=== PATIENT | female | born 1975 | race Caucasian/White ===

== ENCOUNTER 2024-03-03 05:31 | Inpatient (IN) | payer OTHER ==
[2024-03-03 06:59] LABS: VENOUS O2 SATURATION 83.5 % (70-80); VENOUS PCO2 44.6 mmHg (38-52); VENOUS PH 7.375 (7.310-7.410)
[2024-03-03] MEDS: LACTATED RINGERS SOLUTION 1000 ML INFUS.BAG IV ONE (07:20)
[2024-03-03 07:23] LABS: POTASSIUM 5.1 mmol/L (3.5-5.1)
[2024-03-03 07:24] LABS: BASO % 0.8 % (0-2.0); EOS % 0.6 % (0-4.5); HEMATOCRIT 40.1 % (32.4-45.2); HEMOGLOBIN 13.8 GM/dL (10.7-15.3); INR 0.99 (0.83-1.09); LYMPH % 30.5 % (8-40); MCH 31.7 pg (25.7-33.7); MCHC 34.4 g/dl (32.0-36.0); MEAN CELL VOLUME 92.4 fl (80-96); MEAN PLT VOLUME 8.9 fl (7.5-11.1); MONO % 14.9 % (3.8-10.2); NEUT % 53.2 % (42.8-82.8); PLATELET COUNT 180 10^3/uL (134-434); PROTHROMBIN TIME (PATIENT) 11.2 SEC (9.7-13.0); RBC 4.34 M/mm3 (3.60-5.2); RDW 13.6 % (11.6-15.6); WHITE BLOOD COUNT 8.2 K/mm3 (4.0-10.0)
[2024-03-03 07:26] LABS: ACTIVATED PTT 32.2 SECONDS (25.2-36.5); ALBUMIN 2.6 g/dl (3.4-5.0); BLOOD UREA NITROGEN 4.5 mg/dL (7-18); CALCIUM 8.9 mg/dL (8.5-10.1); MAGNESIUM 2.2 mg/dL (1.8-2.4)
[2024-03-03 07:29] LABS: CREATININE 0.7 mg/dL (0.55-1.3)
[2024-03-03 07:31] LABS: BILIRUBIN,TOTAL 0.5 mg/dL (0.2-1); TOT PROT 6.2 g/dl (6.4-8.2)
[2024-03-03 08:07] LABS: EPI CELLS 5 /uL (0-25.1); HYALINE CASTS 0 /uL (0-3.1); PH,URINE 8.5 (5.0-8.0); URINE APPEARANCE CLEAR; URINE BACTERIA 8 /uL (0-1359); URINE BILIRUBIN NEGATIVE (NEGATIVE); URINE COLOR YELLOW; URINE GLUCOSE (UA) NEGATIVE (NEGATIVE); URINE KETONE NEGATIVE (NEGATIVE); URINE LEUK ESTERASE NEGATIVE (NEGATIVE); URINE NITRITE NEGATIVE (NEGATIVE); URINE PROTEIN NEGATIVE (NEGATIVE); URINE RBC 34 /uL (0-23.9); URINE UROBILINOGEN 0.2 mg/dL (0.2-1.0); URINE WBC 4 /uL (0-25.8)
[2024-03-03] MEDS ORDERED: ACETAMINOPHEN INJECTION 100 ML IVPB ONE (08:17)
[2024-03-03] MEDS: ACETAMINOPHEN 1000 MG/100 ML BAG IVPB ONE (08:20)
[2024-03-03 10:08] LABS: POTASSIUM 3.9 mmol/L (3.5-5.1)
[2024-03-03 10:10] LABS: BLOOD UREA NITROGEN 3.5 mg/dL (7-18); CALCIUM 8.8 mg/dL (8.5-10.1)
[2024-03-03 10:13] LABS: CREATININE 0.5 mg/dL (0.55-1.3)
[2024-03-03] MEDS ORDERED: CEFEPIME 2 GM/100 ML BAG IVPB ONE (12:17)
[2024-03-03] MEDS: CEFEPIME HCL 2 GM VIAL (RESTRICTED TO ID) IVPB ONE (12:27)
[2024-03-03] MEDS ORDERED: diazePAM RECTAL GEL 10 MG KIT (PRE-CALIBRATED) RC PRN (12:28)
[2024-03-03] MEDS ORDERED: AZITHROMYCIN IVPB 500 MG/250 ML BAG IVPB ONE (12:44)
[2024-03-03] MEDS ORDERED: DIVALPROEX SODIUM 250 MG TABLET E.C. ONE (12:48)
[2024-03-03] MEDS: AZITHROMYCIN IVPB 500 MG in DEXTROSE 5%-WATER - 250 ML IVPB ONE (13:34)
[2024-03-03] MEDS ORDERED: PATIENT'S OWN MEDICATION (NON-FORMULARY) (Cal/D3/Mag11/Zinc/Cop/Mang/Bor [Caltrate 600+D P PO SCH (14:00)
[2024-03-03] MEDS: VALPROIC ACID 250 MG CAPSULE PO SCH (15:32)
[2024-03-03] MEDS: LORATADINE 10 MG TABLET PO SCH (22:44)
[2024-03-03] MEDS: DOCUSATE SODIUM 100 MG CAPSULE (FP) PO SCH (22:44)
[2024-03-03] MEDS: POLYETHYLENE GLYCOL (HEALTHYLAX) 3350 17 GM PACKET PO SCH (22:45)
[2024-03-03] MEDS: SENNOSIDES 8.6MG TABLET (FP) PO SCH (22:45)
[2024-03-04 09:09] LABS: HEMATOCRIT 41.7 % (32.4-45.2); HEMOGLOBIN 14.2 GM/dL (10.7-15.3); MCH 31.8 pg (25.7-33.7); MCHC 34.2 g/dl (32.0-36.0); MEAN CELL VOLUME 92.9 fl (80-96); MEAN PLT VOLUME 8.2 fl (7.5-11.1); PLATELET COUNT 178 10^3/uL (134-434); RBC 4.49 M/mm3 (3.60-5.2); RDW 13.1 % (11.6-15.6); WHITE BLOOD COUNT 9.6 K/mm3 (4.0-10.0)
[2024-03-04 09:18] LABS: POTASSIUM 4.1 mmol/L (3.5-5.1)
[2024-03-04 09:25] LABS: ALBUMIN 2.8 g/dl (3.4-5.0); BLOOD UREA NITROGEN 5.1 mg/dL (7-18); CALCIUM 8.6 mg/dL (8.5-10.1)
[2024-03-04 09:28] LABS: CREATININE 0.5 mg/dL (0.55-1.3)
[2024-03-04 09:30] LABS: BILIRUBIN,TOTAL 0.7 mg/dL (0.2-1); TOT PROT 6.4 g/dl (6.4-8.2)
[2024-03-04] MEDS ORDERED: PATIENT'S OWN MEDICATION (NON-FORMULARY) (Levonorgestrel-Ethin Estradiol [Vienva-28 Tablet PO SCH (10:00)
[2024-03-04] MEDS: ENOXAPARIN NA (PORCINE) 40 MG/0.4 ML DISP.SYRIN SQ SCH (10:28)
[2024-03-04] MEDS: CEFTRIAXONE 1 GM in DEXTROSE 5%-WATER - 50 ML IVPB SCH (10:28)
[2024-03-04] MEDS: LACTATED RINGERS SOLUTION 1,000 ML/1,000 ML INFUS.BAG IV SCH (11:01)
[2024-03-04] MEDS: ALBUTEROL SO4 2.5/IPRATROPIUM 0.5 INH SOL 3 ML VIAL.NEB. NEB SCH (11:09)
[2024-03-04] MEDS: AZITHROMYCIN IVPB 250 MG in DEXTROSE 5%-WATER - 250 ML IVPB SCH (11:35)
[2024-03-04] MEDS: VALPROATE SODIUM 250 MG/5 ML UNIT DOSE CUP PO SCH (14:37)
[2024-03-05] MEDS: DOCUSATE NA 100 MG/10 ML UNIT-DOSE CUPS PO SCH (09:07)
[2024-03-05 09:39] LABS: BASO % 0.4 % (0-2.0); HEMATOCRIT 38.4 % (32.4-45.2); HEMOGLOBIN 13.4 GM/dL (10.7-15.3); LYMPH % 28.1 % (8-40); MCH 32.3 pg (25.7-33.7); MEAN CELL VOLUME 92.1 fl (80-96); MONO % 18.4 % (3.8-10.2); NEUT % 53.1 % (42.8-82.8); PLATELET COUNT 167 10^3/uL (134-434); RBC 4.17 M/mm3 (3.60-5.2); RDW 13.4 % (11.6-15.6); WHITE BLOOD COUNT 7.9 K/mm3 (4.0-10.0)
[2024-03-05 10:09] LABS: POTASSIUM 3.6 mmol/L (3.5-5.1)
[2024-03-05 10:11] LABS: CALCIUM 8.4 mg/dL (8.5-10.1)
[2024-03-05 10:12] LABS: MAGNESIUM 2.3 mg/dL (1.8-2.4)
[2024-03-05 10:15] LABS: CREATININE 0.5 mg/dL (0.55-1.3); PHOSPHOROUS 2.7 mg/dL (2.5-4.9)
[2024-03-06 09:06] LABS: BASO % 0.2 % (0-2.0); HEMATOCRIT 40.4 % (32.4-45.2); HEMOGLOBIN 14.1 GM/dL (10.7-15.3); LYMPH % 18.4 % (8-40); MCH 32.3 pg (25.7-33.7); MCHC 34.9 g/dl (32.0-36.0); MEAN CELL VOLUME 92.8 fl (80-96); MEAN PLT VOLUME 7.9 fl (7.5-11.1); MONO % 17.6 % (3.8-10.2); NEUT % 63.8 % (42.8-82.8); PLATELET COUNT 182 10^3/uL (134-434); RBC 4.36 M/mm3 (3.60-5.2); RDW 13.7 % (11.6-15.6); WHITE BLOOD COUNT 10.5 K/mm3 (4.0-10.0)
[2024-03-06 09:26] LABS: POTASSIUM 3.8 mmol/L (3.5-5.1)
[2024-03-06 09:47] LABS: BLOOD UREA NITROGEN 4.7 mg/dL (7-18); CALCIUM 8.1 mg/dL (8.5-10.1)
[2024-03-06 09:51] LABS: CREATININE 0.4 mg/dL (0.55-1.3)
[2024-03-06 11:49] VITALS: RESP 18
[2024-03-06] MEDS: SENNOSIDES 8.8 MG/5 ML SYRUP PO SCH (21:35)
[2024-03-07 11:08] LABS: HEMATOCRIT 37.6 % (32.4-45.2); MCH 32.1 pg (25.7-33.7); MCHC 34.5 g/dl (32.0-36.0); MEAN CELL VOLUME 93.1 fl (80-96); MEAN PLT VOLUME 7.7 fl (7.5-11.1); PLATELET COUNT 180 10^3/uL (134-434); RBC 4.04 M/mm3 (3.60-5.2); RDW 13.7 % (11.6-15.6); WHITE BLOOD COUNT 7.5 K/mm3 (4.0-10.0)
[2024-03-07 11:29] LABS: POTASSIUM 3.7 mmol/L (3.5-5.1)
[2024-03-07 11:31] LABS: CALCIUM 7.9 mg/dL (8.5-10.1)
[2024-03-07 11:32] LABS: ALBUMIN 2.3 g/dl (3.4-5.0); BLOOD UREA NITROGEN 7.3 mg/dL (7-18)
[2024-03-07 11:35] LABS: CREATININE 0.3 mg/dL (0.55-1.3)
[2024-03-07 11:36] LABS: BILIRUBIN,TOTAL 0.5 mg/dL (0.2-1); TOT PROT 5.5 g/dl (6.4-8.2)
[2024-03-07 12:06] VITALS: BMI 25.7
[2024-03-08 08:47] LABS: HEMATOCRIT 37.2 % (32.4-45.2); HEMOGLOBIN 12.7 GM/dL (10.7-15.3); MCH 31.9 pg (25.7-33.7); MEAN CELL VOLUME 93.8 fl (80-96); MEAN PLT VOLUME 7.9 fl (7.5-11.1); PLATELET COUNT 196 10^3/uL (134-434); RBC 3.96 M/mm3 (3.60-5.2); RDW 13.7 % (11.6-15.6); WHITE BLOOD COUNT 6.3 K/mm3 (4.0-10.0)
[2024-03-08 09:19] LABS: CALCIUM 8.5 mg/dL (8.5-10.1)
[2024-03-08 09:20] LABS: ALBUMIN 2.5 g/dl (3.4-5.0); BLOOD UREA NITROGEN 7.1 mg/dL (7-18)
[2024-03-08 09:23] LABS: CREATININE 0.4 mg/dL (0.55-1.3)
[2024-03-08 09:24] LABS: BILIRUBIN,TOTAL 0.6 mg/dL (0.2-1); TOT PROT 5.5 g/dl (6.4-8.2)
[2024-03-09 08:45] LABS: HEMATOCRIT 39.9 % (32.4-45.2); HEMOGLOBIN 13.8 GM/dL (10.7-15.3); MCH 32.2 pg (25.7-33.7); MCHC 34.6 g/dl (32.0-36.0); MEAN CELL VOLUME 92.9 fl (80-96); MEAN PLT VOLUME 8.1 fl (7.5-11.1); PLATELET COUNT 248 10^3/uL (134-434); RBC 4.29 M/mm3 (3.60-5.2); RDW 13.6 % (11.6-15.6); WHITE BLOOD COUNT 6.2 K/mm3 (4.0-10.0)
[2024-03-09 08:49] LABS: POTASSIUM 4.4 mmol/L (3.5-5.1)
[2024-03-09 08:56] LABS: CALCIUM 8.9 mg/dL (8.5-10.1)
[2024-03-09 08:57] LABS: ALBUMIN 2.8 g/dl (3.4-5.0)
[2024-03-09 09:00] LABS: CREATININE 0.4 mg/dL (0.55-1.3)
[2024-03-09 09:01] LABS: BILIRUBIN,TOTAL 0.4 mg/dL (0.2-1); TOT PROT 6.4 g/dl (6.4-8.2)
[2024-03-09 09:07] VITALS: BP 146/85; PULSE 94; TEMP 97.5
[2024-03-09 10:06] LABS: ANISOCYTOSIS 0; MACROCYTOSIS 0
== END 2024-03-09 16:45 | DRG 177 ==
LOC: JER 05:31 → JERBED 12:28 → INTOOBSV 12:28 → J5S 14:34 → OBSVTOIN 03-05 11:08 → J6S 03-07 15:14
DX: J69.0 Pneumonitis due to inhalation of food and vomit (principal); J96.01 Acute respiratory failure with hypoxia; R53.2 Functional quadriplegia; F84.0 Autistic disorder; F84.2 Rett's syndrome; G80.9 Cerebral palsy, unspecified; R56.9 Unspecified convulsions; R00.0 Tachycardia, unspecified; R45.1 Restlessness and agitation; R13.10 Dysphagia, unspecified; F79 Unspecified intellectual disabilities
CPT/HCPCS: 0241U-QW; 36415; 71045-TC-FY; 71275-TC; 80048; 80053; 81003; 82803; 83605; 83735; 84100; 84484; 85025; 85027; 85610; 85730; 87040; 87086; 87635; 93005; 93010; 94640; 99285-25; G0378; J0131; Q9967